=== PATIENT | male | born 1965 | race Two or more races ===

== ENCOUNTER 2020-03-10 12:48 | Outpatient (CLI) | payer MEDICAID ==
[~2020-03-10] VITALS: Ht 152.4 cm; Wt 66.2 kg
[2020-03-10 14:00] VITALS: BP 139/79
--- NOTE | 2020-03-10 15:00 | Consultation ---
DATE OF CONSULTATION: 03/10/2020 CONSULTING PHYSICIAN: Kevon Flynn MD CHIEF COMPLAINT: Referral for screening colonoscopy. PAST MEDICAL HISTORY: Hypertension, hypercholesteremia. PAST SURGICAL HISTORY: None. MEDICATIONS: Please see medication reconciliation list. FAMILY HISTORY: No family history of GI malignancies. SOCIAL HISTORY: Patient drinks only socially. Denies any tobacco or IV drug abuse. ALLERGIES: To penicillin. REVIEW OF SYSTEMS: A 10-point review of systems was performed and was negative. PHYSICAL EXAMINATION: VITAL SIGNS: Temperature 99.2, blood pressure 139/79, pulse 64, respirations 20. HEENT: Normocephalic, atraumatic. Sclerae anicteric. NECK: Supple. No evidence of obvious lymphadenopathy. CARDIOVASCULAR: Regular rate and rhythm. Plus S1, S2. LUNGS: Clear to auscultation bilaterally. ABDOMEN: Positive bowel sounds. Soft and nontender. No rebound. No guarding. No peritoneal sign. EXTREMITIES: No cyanosis, no clubbing, no edema. ASSESSMENT AND PLAN: A 55-year-old male referred for screening colonoscopy. Patient was given instruction for colonoscopy. Risks and benefits of procedure were explained to him. We will schedule him as soon as authorization is obtained. Kevon Flynn M.D. DR: ANTONIO JOB#: [id number] CC:
== END 2020-03-10 14:48 | disposition home or self-care (01) ==
LOC: PAN 12:48
DX: Z00.00 Encounter for general adult medical examination without abnormal findings (principal); I10 Essential (primary) hypertension; E78.00 Pure hypercholesterolemia, unspecified; Z88.0 Allergy status to penicillin
CPT/HCPCS: G0463